=== PATIENT | male | born 1995 | race American Indian/Alaskan Native ===

== ENCOUNTER 2017-03-16 20:16 | Emergency (ER) | payer OTHER ==
[2017-03-16] MEDS ORDERED: Tetracaine HCl/PF 0.5% 4 ML Bottle EYEBOTH ONE (20:18)
[2017-03-16] MEDS ORDERED: Fluorescein 1 MG Ophth Strip EYEBOTH ONE (20:18)
[2017-03-16 20:34] VITALS: BP 121/70
--- NOTE | 2017-03-16 21:07 | EDM.PDOC ---
ED HPI GENERAL MEDICAL PROBLEM - General Chief Complaint: Eye Problems Stated Complaint: SAWDUST IN EYES, [id number] Time Seen by Provider: 03/16/17 20:56 Source of Information: Reports: Patient History Limitations: Reports: No Limitations - History of Present Illness INITIAL COMMENTS - FREE TEXT/NARRATIVE: Bilateral eye irritation since this am while sawing,Not wearing safety glasses. Describes as itchy, scratchy. Right greater than left. No visual changes. Attempted to flush with eye drops Right Eye Pain Score (Numeric/FACES): 2 - Related Data Allergies Allergy/AdvReac Type Severity Reaction Status Date / Time No Known Allergies Allergy Verified 03/16/17 20:27 Home Meds: Home Meds . [No Known Home Meds] 07/04/13 [History] Past Medical History - Past Health History Medical/Surgical History: Denies Medical/Surgical History Other Dermatologic History: treated for chlamidia summer Social & Family History - Tobacco Use Years of Tobacco use: 10 Month Tobacco Last Used: mar Second Hand Smoke Exposure: Yes - Caffeine Use Caffeine Use: Reports: Energy Drinks, Soda - Recreational Drug Use Recreational Drug Use: No Recreational Drug Type: Reports: Marijuana/Hashish ED ROS GENERAL - Review of Systems Review Of Systems: ROS reveals no pertinent complaints other than HPI. ED EXAM GENERAL W FULL EYE - Physical Exam Exam: See Below Exam Limited By: No Limitations General Appearance: Alert, No Apparent Distress Eye Exam: Bilateral Eye: EOMI Eyelids: Bilateral: Normal Appearance, Lid Everted for Exam Conjunctiva & Sclera: Right: Injected (inner), Left: Normal Appearance Cornea Exam: Bilateral: Normal Appearance, Examined with Flourescein Extraocular Movements: Bilateral: Intact Pupils: Normal Accommodation Pupillary Reaction: Bilateral: Brisk Ears: Normal External Exam Throat/Mouth: Normal Voice Head: Atraumatic, Normocephalic Neck: Full Range of Motion Respiratory/Chest: No Respiratory Distress Neurological: Alert, Oriented Psychiatric: Normal Affect, Normal Mood Skin Exam: Warm, Dry, Intact Course - Vital Signs Last Recorded V/S: Last Vital Signs Temp 98.8 F 03/16/17 20:33 Pulse 75 03/16/17 20:33 Resp 20 03/16/17 20:33 BP 121/70 03/16/17 20:33 Pulse Ox 99 03/16/17 20:33 - Orders/Labs/Meds Meds: Medications Discontinued Medications Generic Name Dose Route Start Last Admin Trade Name Marc PRN Reason Stop Dose Admin Fluorescein Sodium 1 mg 03/16/17 20:18 Ful-Haven EYEBOTH 03/16/17 20:19 ONETIME ONE Tetracaine HCl 1 ml 03/16/17 20:18 Tetracaine 0.5% Steri-Unit Radha EYEBOTH 03/16/17 20:19 ASDIRECTED ONE Departure - Departure Time of Disposition: 21:11 Disposition: Home, Self-Care 01 Condition: Good Clinical Impression: Irritation of both eyes Clinical Impression: (Ruled Out): Corneal abrasion - Discharge Information Instructions: Corneal Abrasion, [id number] Additional Instructions: moisturizing eye drops to both eyes as needed follow up with eye doctor if not improving use safety glasses
== END 2017-03-16 21:20 | disposition home or self-care (01) ==
LOC: DL.ED 20:16
DX: H57.8 Other specified disorders of eye and adnexa (principal)
CPT/HCPCS: 99282; A9270

== ENCOUNTER 2018-04-07 19:57 | Emergency (ER) | payer OTHER ==
[2018-04-07] MEDS ORDERED: traMADol 50 MG Tab PO ONE (19:58)
[2018-04-07 20:08] VITALS: BP 125/72
--- NOTE | 2018-04-07 21:39 | EDM.PDOC ---
ED HPI GENERAL MEDICAL PROBLEM - General Chief Complaint: Upper Extremity Injury/Pain Stated Complaint: HAND INJURY [id number] Time Seen by Provider: 04/07/18 21:34 Source of Information: Reports: Patient History Limitations: Reports: No Limitations - History of Present Illness INITIAL COMMENTS - FREE TEXT/NARRATIVE: injured right hand few days ago. Right Hand Pain Score (Numeric/FACES): 6 - Related Data Allergies Allergy/AdvReac Type Severity Reaction Status Date / Time No Known Allergies Allergy Verified 04/07/18 20:03 Home Meds: Home Meds . [No Known Home Meds] 07/04/13 [History] Past Medical History - Past Health History Medical/Surgical History: Denies Medical/Surgical History HEENT History: Reports: None Cardiovascular History: Reports: None Respiratory History: Reports: None Gastrointestinal History: Reports: None Genitourinary History: Reports: None Musculoskeletal History: Reports: None Neurological History: Reports: None Psychiatric History: Reports: None Endocrine/Metabolic History: Reports: None Hematologic History: Reports: None Immunologic History: Reports: None Oncologic (Cancer) History: Reports: None Dermatologic History: Reports: None Other Dermatologic History: treated for chlamidia summer Social & Family History - Caffeine Use Caffeine Use: Reports: Energy Drinks, Soda - Recreational Drug Use Recreational Drug Use: No Review of Systems - Review of Systems Review Of Systems: ROS reveals no pertinent complaints other than HPI. ED EXAM, GENERAL - Physical Exam Exam: See Below Exam Limited By: No Limitations General Appearance: Alert, WD/WN, Mild Distress, Other (discomfort) Ears: Hearing Grossly Normal Throat/Mouth: Normal Voice, No Airway Compromise Head: Atraumatic Neck: Non-Tender, Full Range of Motion Respiratory/Chest: No Respiratory Distress Cardiovascular: Regular Rate, Rhythm GI/Abdominal: Soft, Non-Tender Extremities: Other (right hand tender over 5th MPJ, minimal swelling no gross D/ D, NV wnl) Neurological: Alert, Oriented, Normal Cognition, Normal Gait, No Motor/Sensory Deficits Psychiatric: Normal Affect, Normal Mood Skin Exam: Warm, Dry, Normal Color Lymphatic: No Adenopathy Course - Vital Signs Last Recorded V/S: Last Vital Signs Temp 36.7 C 04/07/18 20:04 Pulse 73 04/07/18 20:04 Resp 16 04/07/18 20:04 BP 125/72 04/07/18 20:04 Pulse Ox 100 04/07/18 20:04 - Orders/Labs/Meds Meds: Medications Discontinued Medications Generic Name Dose Route Start Last Admin Trade Name Marc PRN Reason Stop Dose Admin Tramadol HCl Confirm 04/07/18 21:41 Ultram Administered 04/07/18 21:42 Dose 50 mg .ROUTE .STK-MED ONE Departure - Departure Time of Disposition: 21:45 Disposition: Home, Self-Care 01 Condition: Good Clinical Impression: Fracture of base of fifth metacarpal bone of right hand Qualifiers: Encounter type: initial encounter Fracture type: closed Fracture alignment: nondisplaced Qualified Code(s): S62.346A - Nondisplaced fracture of base of fifth metacarpal bone, right hand, initial encounter for closed fracture - Discharge Information Instructions: Metacarpal Fracture, [id number] Forms: ED Department Discharge Additional Instructions: 1) wear splint for comfort 2) see clinic for possible ORTHOPEDIC REFERRAL 3) ice for swelling 4) try tylenol or motrin for pain rx togo; tramadol 50mg x 1
[2018-04-07] MEDS ORDERED: traMADol 50 MG Tab ONE (21:41)
== END 2018-04-07 21:47 | disposition home or self-care (01) ==
LOC: DL.ED 19:57
DX: S62.346A Nondisplaced fracture of base of fifth metacarpal bone, right hand, initial encounter for closed fracture (principal); W22.8XXA Striking against or struck by other objects, initial encounter
CPT/HCPCS: 73130; 99283; A9270

== ENCOUNTER 2019-09-08 17:32 | Emergency (ER) | payer BC, OTHER ==
[2019-09-08] MEDS ORDERED: Benzonatate 100 MG Cap PO ONE (17:33)
[2019-09-08] MEDS ORDERED: Ondansetron 4 MG Tab.DIS PO ONE (17:33)
[2019-09-08 18:13] VITALS: BP 127/65; PULSE 114
[2019-09-08] MEDS ORDERED: Sodium Chloride 0.9% 1,000 ML IV ONE (18:30)
[2019-09-08] MEDS ORDERED: Oseltamivir 75 MG Cap PO ONE (18:39)
[2019-09-08] MEDS ORDERED: Acetaminophen 325 MG Tab PO ONE (18:39)
--- NOTE | 2019-09-08 18:46 | EDM.PDOC ---
<Torito Alvarez - Last Filed: 09/08/19 19:07> ED HPI GENERAL MEDICAL PROBLEM - General Chief Complaint: Fever Stated Complaint: FEVER CANT HOLD WATER DOWN Time Seen by Provider: 09/08/19 18:35 Source of Information: Reports: Patient History Limitations: Reports: No Limitations - History of Present Illness INITIAL COMMENTS - FREE TEXT/NARRATIVE: This 23 yo male patient reports to the ED with generalized body aches, fever and nausea/vomiting. The patient reports his symptoms started 2 nights ago. The patient has not taken anything at this time for temporary symptom relief. The patient reports he has been able to drink a sports drink today. The patient did not get a flu shot this year. Onset Date: 09/06/19 Duration: Constant Location: Reports: Other Quality: Reports: Other Severity: Moderate Improves with: Reports: None Worsens with: Reports: None Context: Reports: Other Associated Symptoms: Reports: No Other Symptoms Treatments DUPLEX TRIMMER: Reports: NSAIDS generalized Pain Score (Numeric/FACES): 8 - Related Data Allergies Allergy/AdvReac Type Severity Reaction Status Date / Time No Known Allergies Allergy Verified 09/08/19 18:29 Home Meds: Home Meds Ibuprofen 1,200 mg PO DAILY PRN 09/08/19 [History] Past Medical History - Past Health History Medical/Surgical History: Denies Medical/Surgical History HEENT History: Reports: None Cardiovascular History: Reports: None Respiratory History: Reports: None Gastrointestinal History: Reports: None Genitourinary History: Reports: None Musculoskeletal History: Reports: None Neurological History: Reports: None Psychiatric History: Reports: None Endocrine/Metabolic History: Reports: None Hematologic History: Reports: None Immunologic History: Reports: None Oncologic (Cancer) History: Reports: None Dermatologic History: Reports: None Other Dermatologic History: treated for chlamidia summer - Infectious Disease History Infectious Disease History: Reports: None Social & Family History - Family History Family Medical History: Noncontributory - Tobacco Use Smoking Status *Q: Current Every Day Smoker Years of Tobacco use: 5 Packs/Tins Daily: 0.5 Used Tobacco, but Quit: No Second Hand Smoke Exposure: No - Caffeine Use Caffeine Use: Reports: Coffee, Energy Drinks - Recreational Drug Use Recreational Drug Use: Yes Recreational Drug Type: Reports: Marijuana/Hashish Recreational Drug Use Frequency: Socially ED ROS GENERAL - Review of Systems Review Of Systems: Comprehensive ROS is negative, except as noted in HPI. ED EXAM, GENERAL - Physical Exam Exam: See Below Exam Limited By: No Limitations General Appearance: Alert, WD/WN, No Apparent Distress Eye Exam: Bilateral Eye: EOMI, Normal Inspection, PERRL Ears: Normal External Exam, Normal Canal, Hearing Grossly Normal, Normal TMs Nose: Normal Inspection, Normal Mucosa, No Blood Throat/Mouth: Normal Inspection, Normal Lips, Normal Teeth, Normal Gums, Normal Oropharynx, Normal Voice, No Airway Compromise Head: Atraumatic, Normocephalic Neck: Normal Inspection, Supple, Non-Tender, Full Range of Motion Respiratory/Chest: No Respiratory Distress, Lungs Clear, Normal Breath Sounds, No Accessory Muscle Use, Chest Non-Tender Cardiovascular: Normal Peripheral Pulses, Regular Rate, Rhythm, No Edema, No Gallop, No JVD, No Murmur, No Rub GI/Abdominal: Normal Bowel Sounds, Soft, Non-Tender, No Organomegaly, No Distention, No Abnormal Bruit, No Mass (Male) Exam: Deferred Rectal (Males) Exam: Deferred Back Exam: Normal Inspection, Full Range of Motion, NT Extremities: Normal Inspection, Normal Range of Motion, Non-Tender, Normal Capillary Refill, No Pedal Edema Neurological: Alert, Oriented, CN II-XII Intact, Normal Cognition, Normal Gait, Normal Reflexes, No Motor/Sensory Deficits Psychiatric: Normal Affect, Normal Mood Skin Exam: Warm, Dry, Intact, Normal Color, No Rash Lymphatic: No Adenopathy Course - Vital Signs Last Recorded V/S: Last Vital Signs Temp 103.1 F H 09/08/19 18:10 Pulse 114 H 09/08/19 18:10 Resp 19 09/08/19 18:10 BP 127/65 09/08/19 18:10 Pulse Ox 98 09/08/19 18:10 - Orders/Labs/Meds Labs: Laboratory Tests 09/08/19 09/08/19 Range/Units 18:40 18:40 WBC 10.8 H (5.0-10.0) 10^3/uL RBC 4.47 L (4.6-6.2) 10^6/uL Hgb 13.7 L D (14.0-18.0) g/dL Hct 39.4 L (40.0-54.0) % MCV 88.1 (80-100) fL MCH 30.6 (27.0-34.0) pg MCHC 34.8 (33.0-35.0) g/dL Plt Count 209 D (150-450) 10^3/uL Neut % (Auto) 85.2 H (42.2-75.2) % Lymph % (Auto) 5.7 L (20.5-50.1) % [place] % (Auto) 8.2 H (2-8) % Eos % (Auto) 0.6 L (1.0-3.0) % Baso % (Auto) 0.3 (0.0-1.0) % Sodium 135 (135-145) mmol/L Potassium 3.4 L (3.6-5.0) mmol/L Chloride 101 (101-111) mmol/L Carbon Dioxide 24.0 (21.0-31.0) mmol/L Anion Gap 13.4 BUN 12 (7-18) mg/dL Creatinine 1.1 (0.6-1.3) mg/dL Est Cr Clr Drug Dosing 103.24 mL/min Estimated GFR (MDRD) > 60 BUN/Creatinine Ratio 10.90 Glucose 145 H (74-105) mg/dL Calcium 8.9 (8.4-10.2) mg/dl Total Bilirubin 0.7 (0.2-1.0) mg/dL AST 25 (10-42) IU/L ALT 19 (10-60) IU/L Alkaline Phosphatase 57 (42-121) IU/L Total Protein 7.3 (6.7-8.2) g/dl Albumin 4.6 (3.2-5.5) g/dl Globulin 2.7 Albumin/Globulin Ratio 1.70 Meds: Medications Discontinued Medications Generic Name Dose Route Start Last Admin Trade Name Freq PRN Reason Stop Dose Admin Acetaminophen 650 mg 09/08/19 18:39 09/08/19 18:58 Tylenol PO 09/08/19 18:40 650 mg NOW ONE Administration Benzonatate Confirm 09/08/19 20:00 09/08/19 20:07 Tessalon Perles Administered 09/08/19 20:01 Not Given Dose 200 mg .ROUTE .STK-MED ONE Sodium Chloride 1,000 mls @ 999 mls/hr 09/08/19 18:30 09/08/19 18:48 Normal Saline IV 09/08/19 19:30 999 mls/hr .BOLUS ONE Administration Ondansetron HCl Confirm 09/08/19 20:00 09/08/19 20:07 Zofran Odt Administered 09/08/19 20:01 Not Given Dose 8 mg .ROUTE .STK-MED ONE Oseltamivir Phosphate 75 mg 09/08/19 18:39 09/08/19 18:58 Tamiflu PO 09/08/19 18:40 75 mg ONETIME ONE Administration Departure - Departure Disposition: Home, Self-Care 01 Clinical Impression: Influenza - Discharge Information Instructions: Influenza, Adult, [id number] Referrals: PCP,Unobtain [Primary Care Provider] - Forms: ED Department Discharge Additional Instructions: avoid exposure to others, cover mouth with coughing wash hands frequently tamiflu 75mg one twice daily for 5 days alternate tylenol 650 mg and ibuprofen 600mg every 4 hours as needed for fever/ discomfort increase fluid intake humidification zofran 4mg ODT one every 6 hours as needed for nausea tesselon 200mg every 8 hours as needed for cough Sepsis Event Note - Evaluation Sepsis Screening Result: Possible Sepsis Risk - Focused Exam Date Exam was Performed: 09/08/19 Time Exam was Performed: 19:07 <Aurora Gonzalez - Last Filed: 09/10/19 02:57> Departure - Departure Time of Disposition: 20:05 Condition: Good - Discharge Information *PRESCRIPTION DRUG MONITORING PROGRAM REVIEWED*: No *COPY OF PRESCRIPTION DRUG MONITORING REPORT IN PATIENT EDI: No Sepsis Event Note - Focused Exam Date Exam was Performed: 09/10/19 Time Exam was Performed: 02:56
[2019-09-08 19:06] LABS: ANION GAP 13.4; CHLORIDE,CL 101 mmol/L (101-111); SODIUM,NA 135 mmol/L (135-145)
[2019-09-08] MEDS ORDERED: Ondansetron 4 MG Tab.DIS ONE (20:00)
[2019-09-08] MEDS ORDERED: Benzonatate 100 MG Cap ONE (20:00)
== END 2019-09-08 20:06 | disposition home or self-care (01) ==
LOC: DL.ED 17:32
DX: J11.1 Influenza due to unidentified influenza virus with other respiratory manifestations (principal); F17.210 Nicotine dependence, cigarettes, uncomplicated
CPT/HCPCS: 36415; 80053; 85025; 87081; 87430; 87804; 96360; 99284; A9270; J7030

== ENCOUNTER 2023-04-01 18:39 | Emergency (ER) | payer SELFPAY ==
[2023-04-01 18:56] VITALS: BP 123/78; PULSE 87
[2023-04-01] MEDS ORDERED: Sodium Chloride 0.9% 10 ML Syringe FLUSH PRN (18:58)
[2023-04-01] MEDS ORDERED: cefTRIAXone 1 GM Vial IVPUSH ONE (18:59)
[2023-04-01 19:11] LABS: BASOPHILS PERCENT AUTO 0.2 % (0.0-1.0); EOSINOPHILS PERCENT AUTO 0.2 % (1.0-3.0); HEMATOCRIT 43.5 % (40.0-54.0); HEMOGLOBIN 15.1 g/dL (14.0-18.0); LYMPHOCYTES PERCENT AUTO 9.1 % (20.5-50.1); MEAN CORPUSCULAR HEMOGLOBIN 31.1 pg (27.0-34.0); MEAN CORPUSCULAR HGB CONC 34.7 g/dL (33.0-35.0); MEAN CORPUSCULAR VOLUME 89.7 fL (80-100); MONOCYTES PERCENT AUTO 9.9 % (2-8); NEUTROPHILS PERCENT AUTO 80.6 % (42.2-75.2); PLATELET COUNT,PLT 296 10^3/uL (150-450); RED BLOOD CELL COUNT 4.85 10^6/uL (4.6-6.2); WHITE BLOOD CELL COUNT,WBC 16.6 10^3/uL (5.0-10.0)
[2023-04-01 19:34] LABS: A/G RATIO 1.2; ALBUMIN 4.1 g/dL (3.4-5.0); ANION GAP 14.9 mEq/L (7-13); BILIRUBIN TOTAL 0.4 mg/dL (0.2-1.0); BUN/CREATININE RATIO 9.2 (No establ ref range); CALCIUM 9.4 mg/dL (8.5-10.1); CREATININE 0.87 mg/dL (0.70-1.30); EST CRCL DRUG DOSING (CG) 119.22 mL/min; POTASSIUM,K 3.9 mmol/L (3.5-5.1); PROTEIN TOTAL,TP 7.6 g/dL (6.4-8.2)
[2023-04-01] MEDS ORDERED: Dexamethasone 4 MG/ML SDV IVPUSH ONE (19:38)
[2023-04-01] MEDS ORDERED: Sodium Chloride 0.9% 1,000 ML IV ONE (19:40)
[2023-04-01 19:58] LABS: LACTIC ACID 0.9 mmol/L (0.4-2.0)
[2023-04-01] MEDS ORDERED: Vancomycin 2 GM in Sodium Chloride 0.9% 500 ML IV ONE (20:39)
== END 2023-04-01 22:38 | disposition home or self-care (01) ==
LOC: DL.ED 18:39
DX: S51.002A Unspecified open wound of left elbow, initial encounter (principal); S80.862A Insect bite (nonvenomous), left lower leg, initial encounter; M70.22 Olecranon bursitis, left elbow; F17.210 Nicotine dependence, cigarettes, uncomplicated; W57.XXXA Bitten or stung by nonvenomous insect and other nonvenomous arthropods, initial encounter
CPT/HCPCS: 36415; 73080; 80053; 83605; 85025; 87070; 87077; 87186; 87205; 96361; 96365; 96375; 99282; J0696; J1100; J3370; J7030; J7040; 86618; J3490

== ENCOUNTER 2023-11-27 02:39 | Emergency (ER) | payer OTHER ==
[2023-11-27] MEDS: Lidocaine 1% 5 ML VIAL INJECT ONE (03:20)
[2023-11-27 04:25] VITALS: BP 118/72; PULSE 92
== END 2023-11-27 04:13 ==
LOC: DL.ED 02:39
DX: S61.216A Laceration without foreign body of right little finger without damage to nail, initial encounter (principal); F17.210 Nicotine dependence, cigarettes, uncomplicated; Z86.16 Personal history of COVID-19; Y04.0XXA Assault by unarmed brawl or fight, initial encounter
CPT/HCPCS: 12001; 73130-RT; 99282; 99283; J3490